=== PATIENT | male | born 1970 | race Caucasian/White ===

== ENCOUNTER 2020-04-16 13:16 | Emergency (ER) | payer BC ==
[~2020-04-16] VITALS: Ht 180.3 cm; Wt 97.4 kg
[2020-04-16] MEDS ORDERED: LIDOCAINE W/EPINEPHRINE 1% 20ML VIAL As Ordered ONE (13:36)
[2020-04-16] MEDS ORDERED: LIDOCAINE W/EPINEPHRINE 1% 20ML VIAL SC ONE (13:45)
[2020-04-16 14:45] VITALS: BP 141/80
== END 2020-04-16 14:46 | disposition home or self-care (01) ==
LOC: M ED 13:16
DX: S61.201A Unspecified open wound of left index finger without damage to nail, initial encounter (principal); W22.8XXA Striking against or struck by other objects, initial encounter; Y92.009 Unspecified place in unspecified non-institutional (private) residence as the place of occurrence of the external cause; Y93.K1 Activity, walking an animal; Y99.9 Unspecified external cause status